=== PATIENT | female | born 1940 | race Caucasian/White ===

== ENCOUNTER → 2020-03-27 | Day surgery (SDC) | payer MEDICARE, OTHER ==
[2020-03-21 13:11] LABS: BASOPHILS # (AUTO) 0.1 (0.0-0.1); BASOPHILS % 0.8 % (0.0-1.0); EOSINOPHILS # (AUTO) 0.3 (0.0-0.4); EOSINOPHILS % 2.8 % (0.0-6.0); LYMPHOCYTES # (AUTO) 3.7 (1.0-3.2); LYMPHOCYTES % 34.2 % (18.0-39.1); MEAN CORPUSCULAR HEMOGLOBIN 28.7 pg (28-32); MEAN CORPUSCULAR HGB CONC 32.4 g/dL (31-35); MEAN CORPUSCULAR VOLUME 88.5 fL (81-99); MONOCYTES # (AUTO) 0.8 (0.2-0.8); MONOCYTES % 7.3 % (4.4-11.3); NEUTROPHILS % 54.6 % (38.7-80.0); PLATELET COUNT 318 x10e3/uL (140-360); RED BLOOD COUNT 4.18 x10e6/uL (3.6-5.1); RED CELL DISTRIBUTION WIDTH 15.2 % (11.7-14.4)
[~2020-03-27] MED LIST: ASPIRIN81 MG; BUSPIRONE HCL5 MG PO; CLOPIDOGREL75 MG PO; LISINOPRIL10 MG PO; LOVASTATIN20 MG; NIFEDIPINE10 MG PO; NITROFURANTOIN50 MG PO; PROPOFOL IV EMULSION 10 MG/ML 20 ML VIAL ONE; TRAZODONE HCL100 MG; VESICARE5 MG PO; [UNRECOGNIZED DRUG - OTHER] PO
[2020-03-27 12:30] VITALS: BP 132/83
== END | disposition home or self-care (01) ==
LOC: OR 09:47
PROVIDERS: ATTEND Internal Medicine
DX: K59.09 Other constipation (principal); D49.0 Neoplasm of unspecified behavior of digestive system; K94.00 Colostomy complication, unspecified; D64.9 Anemia, unspecified; I25.810 Atherosclerosis of coronary artery bypass graft(s) without angina pectoris; J44.9 Chronic obstructive pulmonary disease, unspecified; I10 Essential (primary) hypertension; F17.210 Nicotine dependence, cigarettes, uncomplicated; Y83.8 Other surgical procedures as the cause of abnormal reaction of the patient, or of later complication, without mention of misadventure at the time of the procedure; Z88.6 Allergy status to analgesic agent; Z88.8 Allergy status to other drugs, medicaments and biological substances; Z01.810 Encounter for preprocedural cardiovascular examination; Z01.812 Encounter for preprocedural laboratory examination; Z11.9 Encounter for screening for infectious and parasitic diseases, unspecified; Z79.82 Long term (current) use of aspirin; Z79.02 Long term (current) use of antithrombotics/antiplatelets; Z89.619 Acquired absence of unspecified leg above knee; Z95.1 Presence of aortocoronary bypass graft
CPT/HCPCS: 36415; 45378; 85025; 93005; J2704; U0002